=== PATIENT | female | born 1990 | race Caucasian/White ===

== ENCOUNTER 2017-02-26 16:10 | Emergency (ER) | payer BC, MEDICAID ==
[~2017-02-26] VITALS: Ht 157.5 cm; Wt 96.7 kg
[2017-02-26 16:10] VITALS: TEMP 98.4; Ht 157.5 cm; Wt 96.7 kg
[~2017-02-26 16:10] MED LIST: LEVO50TA72 PO; PREN1TAB53 PO
--- OUTSIDE RECORDS SUMMARY | 2017-02-26 16:14 | XMS REPORT | Referral Summary ---
Author Author [facility], Family Medicine Organization [facility], Family [facility] Address Unknown Phone Unavailable Care Team Providers Care Pmo Project Manager Name Role Phone Miguelina Cherry Primary Care Physician [phone] Encounter Date(s): 12/29/16 - 12/29/16 [facility], [address] [place] [id number] Discharge Diagnosis: Headache, common migraine Discharge Disposition: 01-Home or Self Care Attending Physician: Sandra Mason APRN Admitting Physician: Sandra Mason APRN Vital Signs Most recent to 1 oldest [Reference Range]: Temperature Tympanic 36.7 degC [36.6-38.1 degC] (12/29/16 2:16 PM) Peripheral Pulse 80 bpm Rate [60-100 bpm] (12/29/16 2:16 PM) Respiratory Rate 17 br/min [14-20 br/min] (12/29/16 2:16 PM) Blood Pressure 128/78 mmHg [90-140/60-90 mmHg] (12/29/16 2:16 PM) SpO2 98 % (12/29/16 2:16 PM) Problem List Condition Effective Dates Status Health Status Informant Anxiety(Confirmed) 10/23/11 Active Depression(Confirmed Active ) Thyroid Active disease(Confirmed) Ear 1991 Active infection(Confirmed) Psoriasis(Confirmed) 1991 Active Sexually transmitted 03/2011 Active disease(Confirmed) Allergies, Adverse Reactions, Alerts No Known Medication Allergies Medications FLUoxetine 40 mg oral capsule 40 mg 1 caps, Oral, Daily, # 30 caps, 3 Refill(s), Pharmacy: [id number], 1 caps Oral Daily Start Date: 12/02/16 Status: Ordered Imitrex 50 mg oral tablet 50 mg 1 tabs, Oral, Daily, as needed for migraine headache, may repeat dose after 2 hours up to a maximum of 200 mg in 24 hours, # 9 tabs, 0 Refill(s), Pharmacy: [id number], 1 tabs Oral Daily,PRN:as needed for migraine headache,Instr:march r... Start Date: 12/29/16 Status: Ordered Results Chemistry Most recent to 1 oldest [Reference Range]: U Beta hCG Ql Negative (12/29/16 2:09 PM) Immunizations Given and Recorded Vaccine Date Status Refusal Reason tetanus/diphth/pertuss (Tdap) adult/adol 05/22/14 Recorded Procedures Procedure Date Related Diagnosis Body Site Insertion, non-biodegradable drug delivery 12/29/16 implant section 2011 Hernia repair 1991 Social History Social History Type Response Smoking Status Never smoker Assessment and Plan Extracted from: Title: Procedure Note Author: Sandra Mason APRN Date: 12/29/16 Assessment/Plan Contraception Ordered: Insertion, Non-Biodegradable Drug Delivery Implant [id number] Office Visit Level 3 Est 54249 Headache, common migraine Ordered: Insertion, Non-Biodegradable Drug Delivery Implant [id number] Office Visit Level 3 Est 09570 Addendum by Hank, I reviewed this chart, the patient's medical history, and the [facility] Resident's/TANK MAKER WOOD's/PA/RN's/PharmD's documented findings, and concur with the assessment and on plan as above. December 29, 2016 16:11:59 NECK FITTER Extracted from: Title: Office Visit Note Author: Sandra Mason APRN Date: 12/29/16 Assessment/Plan Contraception Nexplanon was inserted seeprocedure note. Ordered: Insertion, Non-Biodegradable Drug Delivery Implant [id number] Office Visit Level 3 Est 03987 Headache, common migraine Prescription for Imitrexwith the usual instructions was written. She was cautioned about possible side effects and verbalized full understanding. Call or return if she has problems. Ordered: Insertion, Non-Biodegradable Drug Delivery Implant 61606 Office Visit Level 3 Est 27357
--- OUTSIDE RECORDS SUMMARY | 2017-02-26 16:14 | XMS REPORT | Referral Summary ---
Author Author [facility], [facility] Medicine Organization [facility] Address Unknown Phone Unavailable Care Team Providers Care Sand Filler Name Role Phone Miguelina Cherry Primary Care Physician [phone] Encounter VC Date(s): 12/02/16 - 12/02/16 [facility], [address] [place] [id number] Discharge Disposition: 01-Home or Self Care Attending Physician: Sandra Mason APRN Admitting Physician: Sandra Mason APRN Vital Signs Most recent to 1 oldest [Reference Range]: Temperature Tympanic 36.9 degC [36.6-38.1 degC] (12/02/16 1:26 PM) Peripheral Pulse 88 bpm Rate [60-100 bpm] (12/02/16 1:26 PM) Respiratory Rate 17 br/min [14-20 br/min] (12/02/16 1:26 PM) Blood Pressure 138/80 mmHg [90-140/60-90 mmHg] (12/02/16 1:26 PM) SpO2 98 % (12/02/16 1:26 PM) Problem List Condition Effective Dates Status Health Status Informant Anxiety(Confirmed) 10/23/11 Active Depression(Confirmed Active ) Thyroid Active disease(Confirmed) Ear 1991 Active infection(Confirmed) Psoriasis(Confirmed) 1991 Active Sexually transmitted 03/2011 Active disease(Confirmed) Allergies, Adverse Reactions, Alerts No Known Medication Allergies Medications FLUoxetine 40 mg oral capsule 40 mg 1 caps, Oral, Daily, # 30 caps, 3 Refill(s), Pharmacy: [id number], 1 caps Oral Daily Start Date: 12/02/16 Status: Ordered Results No data available for this section Immunizations Given and Recorded Vaccine Date Status Refusal Reason tetanus/diphth/pertuss (Tdap) adult/adol 05/22/14 Recorded Procedures Procedure Date Related Diagnosis Body Site section 2012 Hernia repair 1991 Social History Social History Type Response Smoking Status Never smoker Assessment and Plan No data available for this section
--- OUTSIDE RECORDS SUMMARY | 2017-02-26 16:14 | XMS REPORT | Referral Summary ---
Author Author [facility], [facility] Medicine Organization [facility] Address Unknown Phone Unavailable Care Team Providers Care Bookmaker'S Clerk Name Role Phone Miguelina Cherry Primary Care Physician [phone] Encounter VC Date(s): 10/23/15 - 10/23/15 [facility], [address] [place] [id number] Discharge Disposition: 01-Home or Self Care Attending Physician: Sam Cherry MD Admitting Physician: Sam Cherry MD Vital Signs Most recent to 1 oldest [Reference Range]: Peripheral Pulse 108 bpm Rate [60-100 bpm] *HI* (10/23/15 2:15 PM) Blood Pressure 134/80 mmHg [90-140/60-90 mmHg] (10/23/15 2:15 PM) SpO2 98 % (10/23/15 2:15 PM) Problem List Condition Effective Dates Status Health Status Informant Anxiety(Confirmed) 10/23/11 Active Depression(Confirmed Active ) Thyroid Active disease(Confirmed) Ear 1991 Active infection(Confirmed) Psoriasis(Confirmed) 1991 Active Allergies, Adverse Reactions, Alerts No Known Medication Allergies Medications FLUoxetine 40 mg oral capsule 40 mg 1 caps, Oral, Daily, # 90 caps, 2 Refill(s), Pharmacy: [id number], 1 caps Oral Daily Start Date: 10/23/15 Status: Ordered FLUoxetine 40 mg oral capsule See Instructions, 1 caps Oral Daily,Instr:Must have an appt. for additonal refills., # 30 caps, 2 Refill(s), eRx: [facility], 1 caps Oral Daily ,Instr:Must have an appt. for additonal refills. Start Date: 09/08/14 Status: Ordered levothyroxine 50 mcg (0.05 mg) oral capsule 50 mcg 1 caps, Oral, Daily, # 90 tabs, 2 Refill(s), Pharmacy: [id number], 1 caps Oral Daily Start Date: 10/23/15 Status: Ordered levothyroxine 50 mcg (0.05 mg) oral tablet 1 tabs, Oral, Daily, # 90 tabs, 3 Refill(s), Pharmacy: [id number], 1 tabs Oral Daily Start Date: 06/20/14 Status: Ordered PreNata oral tablet, chewable tabs, Chewed, Daily, 0 Refill(s) Start Date: 12/12/14 Status: Ordered ProAir HFA 90 mcg/inh inhalation aerosol 2 puffs, Inhalation, q4hr, as needed for wheezing, # 8.5 g, 0 Refill(s) Start Date: 12/12/14 Status: Ordered Results No data available for this section Immunizations No data available for this section Procedures Procedure Date Related Diagnosis Body Site section 2011 Hernia repair 1991 Social History Social History Type Response Smoking Status Never smoker Assessment and Plan No data available for this section
[2017-02-26] MEDS ORDERED: PROP80CA2 PO (17:03)
[2017-02-26] MEDS ORDERED: FLUO40CA49 PO (17:03)
[2017-02-26] MEDS ORDERED: ACET-62 PO (17:07)
[2017-02-26] MEDS ORDERED: SUMA50TA PO (17:07)
[2017-02-26] MEDS ORDERED: DiphenhydrAMINE 25 MG CAPSULE PO ONE (17:30)
[2017-02-26] MEDS ORDERED: PredniSONE 10 MG TABLET PO ONE (17:30)
[2017-02-26] MEDS ORDERED: PRED50TA PO (17:59)
[2017-02-26] MEDS ORDERED: FAMO-137 PO (17:59)
--- NOTE | 2017-02-26 18:00 | ERPDOC ---
Departure Disposition Decision Date: Feb 26, 2017 Disposition Decision Time: 17:57 Disposition: 01 DISCHARGED HOME, SELF-CARE Impression Impression Impression: Primary Impression: Accidental insect sting Severity: Mild Condition: Improved Seen By: Physician only Referrals: LIZ STRATTON APRN, PHD (Family) 2 Days Patient Instructions: Insect Bite or Sting (ED) Problems/Meds/Labs Reviewed?: Yes Medications reviewed and manag: Yes Follow up care ordered?: Yes Mental Status: Alert, Oriented Scripts Famotidine (Pepcid) 20 Mg Tablet 1 TAB PO BID for 10 Days, #20 TAB 0 Refills Prov: INESSA GODOY DO 02/26/17 Prednisone (Prednisone) 50 Mg Tablet 50 MG PO WB for 5 Days, #5 TAB 0 Refills Take 1 tablet, by mouth, once a day with breakfast. Prov: INESSA GODOY DO 02/26/17 HPI - Skin General General Chief Complaint: Allergic Reaction Stated Complaint: STUNG BY BEE Time Seen by Provider: 16:51 Source: patient Exam Limitations: no limitations HPI - Skin General Initial Comments 26-year-old female presents to the emergency department with a chief complaint of a bee sting to the left thigh. Patient noted onset of symptoms at approximately 2 PM today. Symptoms have been persistent in nature since onset. Patient notes mild dull discomfort at the site of sting only. No radiation. Patient removed the stinger herself. Patient's tetanus status is current. Patient denies any other complaints or associated symptoms. She was at home when the symptoms began. Patient describes her discomfort as mildly itchy. There is no intraoral involvement or breathing difficulties. No diffuse hives. Patient does not note any exacerbating or remitting factors. Occurred At: home Onset: Rapid Allergies: Coded Allergies: citalopram hydrobromide (Verified Allergy, Intermediate, trouble breathing , 02/26/17) banana (Verified Allergy, Mild, ITCHING, 02/26/17) throat starts to itch Uncoded Allergies: WASP STING (Allergy, Intermediate, DYSPNEA, 02/26/17) Past History Past Medical History Metabolic: hypothyroidism Respiratory: asthma Neurological: headaches Psychological: depression Surgical History General: hernia Family History Family PMH: FOUND: [place], cancer, diabetes, hypertension Vaccines Hx Influenza Vaccination: No Hx Pneumococcal Vaccination: No Hx Tetanus, Diptheria, Pertuss: No Social History Smoking Status: Never smoker Substance Use Type: does not use Alcohol Intake: none Review of Systems Constitutional Constitutional: DENIES: chills, fever Eyes General: DENIES: erythema, exudate Lids/Accessories: DENIES: erythema, swelling Vision: DENIES: acuity, blurring ENMT Ears: DENIES: drainage, erythema Hearing: DENIES: hearing loss Balance: DENIES: ataxia, falling to one side Sinuses: DENIES: congestion, pain Nose: DENIES: nosebleeds, pain Mouth/Throat: DENIES: painful swallowing, sore throat Teeth: DENIES: pain Jaw: DENIES: pain Cardiovascular Cardiac: DENIES: chest pain, dyspnea on exertion Rhythm/Rate: DENIES: irregular beat, palpitations Vascular: DENIES: pedal edema, unilateral swelling Pulmonary Respiratory: DENIES: cough, dyspnea, pleuritic chest pain, sputum GI Upper Abdomen: DENIES: nausea, pain, vomiting Lower Abdomen: DENIES: diarrhea, pain General: DENIES: dysuria, frequency Musculoskeletal General: DENIES: joint pain, tenderness Integumentary Skin: itching, DENIES: rash Neurological General: DENIES: headache, numbness, weakness Psychiatric Psychiatric: DENIES: emotional instability, suicidal ideation/attempt Endocrine Endocrine: DENIES: polydipsia, polyphagia Hematologic/Lymphatic Hematologic/Lymphatic: DENIES: frequent nosebleeds, lymphadenopathy Allergic/Immunological Allergic/Immunoligical: DENIES: allergic reactions, hives Physical Exam General General Nourishment: well nourished, well developed, appears stated age, no acute distress, adult General Body Habitus: well groomed Vitals and Pain First Documented Vital Signs Date Time Temp Pulse Resp B/P Pulse Ox O2 Delivery O2 Flow Rate FiO2 02/26/17 16:10 98.4 96 20 130/71 97 Room Air Weight: Kilograms: 96.700 Height (feet): 5 Height (inches): 2.00 Triage Pain Scale: RN VS reviewed by Provider: Yes Normal Exams: Head: Normocephalic w/o trauma Eyes: Pupils are PERRLA w/ EOMI, No scleral icterus, irritation, or foreign bodies noted ENMT: No facial trauma, nasal exudates, pharyngeal erythema, or exudates are noted Dental: No fractured, loose, or missing teeth noted Neck: Full range of motion, without adenopathy, JVD, bruits or thyromegaly Chest/Resp: Clear all kaminski, with good airflow, and symmetry bilaterally CV: Regular rate and rhythm, without murmur or gallop, Pulses 2+ all extremities, capillary refill, <2 seconds all ext., no pedal edema noted Abdomen: Bowel sounds positive, soft, non-tender, non-distended, no hepatosplenomegaly, masses or bruits noted Lymphatic: No lymphadenopathy, or lymphedema noted Musculoskeletal: No tenderness, or deformity noted, good range of motion, all extremities Integumentary: No rashes, hives, or bruising noted, hair and nails, without abnormality Neurologic: Patient is alert, and oriented, cranial nerves, motor/sensory/ cerebellar, exams w/o gross deficits, to observation Psychiatric: Patient exhibits, appropriate attention, emotion and affect Integumentary (brief) Comments Left inner thigh -small less than 0.5 cm area of erythema consistent with puncture wound. No stinger. No lymphangitis or abscess. No spreading of symptoms. Lesion blanches with pressure. Differential Diagnoses Considering: Contact Dermatitis, Hives/Urticaria, Scabies, Insect Sting Progress Results/Orders Orders Procedure Category Date Status Time Prednisone PHA 02/26/17 Complete (Prednisone) 17:30 Famotidine (Pepcid) PHA 02/27/17 Complete 09:00 Diphenhydramine PHA 02/26/17 Complete (Benadryl) 17:30 Medications Current ED Medications Prednisone (PredniSONE) 40 mg O ONCE PO Last administered on 02/26/17 17:34; Start 02/26/17 at 17:30; Stop 02/26/17 at 17:31; Status DC Famotidine (Pepcid) 20 mg DAILY PO Last administered on 02/26/17 17:34; Start 02/27/17 at 09:00; Stop 02/27/17 at 09:00; Status DC Diphenhydramine HCl (Benadryl) 25 mg O ONCE PO Last administered on 02/26/17 17:34; Start 02/26/17 at 17:30; Stop 02/26/17 at 17:31; Status DC Progress Progress Patient is monitored in the emergency department for a safe timeframe. She is given prednisone, Pepcid, and Benadryl. Patient symptoms have improved. She is discharged home in improved condition. Should follow up as instructed. Patient is to return to the emergency Department if her condition worsens or changes in any manner. Patient is in agreement with the current plan of management. Prescriptions for Pepcid and prednisone are provided. Patient is to use Benadryl [id number] 25 mg every 6 hours for the next 24 hours. Patient verbalizes agreement and understanding. Patient is discharged home in improved condition. INESSA GODOY DO Feb 26, 2017 18:00
[2017-02-26 18:21] VITALS: BP 136/78; PULSE 86; RESP 16; O2SAT 96
--- NOTE | 2017-02-26 18:21 | NUR ---
DEPART VERBAL AND WRITTEN DISCHARGE INSTRUCTIONS GIVEN AND UNDERSTOOD. CONDITION STABLE. RELEASED AMBULATORY WITH FAMILY.
[2017-02-27] MEDS ORDERED: FAMOTIDINE 20 MG TABLET PO SCH (09:00)
== END 2017-02-26 18:21 | disposition home or self-care (01) ==
LOC: ED 16:10
DX: T63.441A Toxic effect of venom of bees, accidental (unintentional), initial encounter (principal); Y92.009 Unspecified place in unspecified non-institutional (private) residence as the place of occurrence of the external cause
CPT/HCPCS: 99283; J7512

== ENCOUNTER 2017-03-02 19:16 | Emergency (ER) | payer BC ==
[~2017-03-02] VITALS: Ht 157.5 cm; Wt 96.0 kg
[~2017-03-02 19:16] MED LIST changes: +ACET-62 PO; +FAMO-137 PO; +FLUO40CA49 PO; -LEVO50TA72 PO; +PRED50TA PO; -PREN1TAB53 PO; +PROP80CA2 PO; +SUMA50TA PO
--- OUTSIDE RECORDS SUMMARY | 2017-03-02 19:20 | XMS REPORT | Continuity of Care Document ---
Author Author [facility] Organization [facility] Address Unknown Phone Unavailable Support Name Relationship Address Phone WALT INESSA Heidi STATON Caregiver [address] [place] [address] Unavailable LIZ STRATTON APRN PHD Caregiver [address] [place] [address] Unavailable ALBARO MOODY Next Of Kin [address] [place] [address] Insurance Providers Guarantor Rubio Mendez Address [address] [place] [address] Email DENIED 17 Payer [facility] Policy Number [id number] Subscriber's Name BradfordAlbaro Luis Relationship 01 Spouse Group Number [id number] Advance Directives Directive Response Recorded Date/Time Advanced Directives Type None 05/22/14 10:35am Ordered Resuscitation Status Full Code 04/13/14 6:03pm Chief Complaint and Reason for Visit Chief Complaint Allergic Reaction Reason for Visit Accidental insect sting Problems Active Problems Medical Problem Onset Date Status Vaginal delivery 05/24/2014 Acute Past Problems Medical Problem Onset Date Accidental insect sting Unknown Medications Current Home Medications Medication Dose Units Route Directions Days Qty Instructions Start Date Acetaminophen 500 Mg Tablet 1,000 Mg Oral Every 8 Hours as needed for Pain 02/26/17 Famotidine (Pepcid) 20 Mg Tablet 1 Tab Oral Twice A Day 10 Days 20 Tablet 02/26/17 Fluoxetine Hcl 40 Mg Capsule 40 Mg Oral Daily 02/26/17 Prednisone 50 Mg Tablet 50 Mg Oral Give With Breakfast 5 Days 5 Tablet Take 1 tablet, by mouth, once a day with breakfast. 02/26/17 Propranolol Hcl 80 Mg Cap.sa.24h 80 Mg Oral Daily 02/26/17 Sumatriptan Succinate (Imitrex) 50 Mg Tablet 50 Mg Oral As Needed 02/26/17 Past Home Medications Medication Directions Ordered Status Acetaminophen (Tylenol Extra Strength) 500 Mg Tablet, 500 Mg Oral As Needed 10/21/11 Discontinued Ascorbic Acid (Vitamin C) 500 Mg Capsule.sa, 500 Mg Oral Daily 10/21/11 Discontinued Escitalopram Oxalate (Lexapro) 10 Mg Tablet, 10 Mg Oral Daily 03/22/11 Discontinued Fluoxetine Hcl (Prozac) 40 Mg Capsule, 40 Mg Oral Daily 03/12/13 Discontinued Guaifenesin (Robitussin) 100 Mg/5 Ml Syrup, As Needed 12/02/10 Discontinued Ibuprofen 200 Mg Capsule, As Needed 12/02/10 Discontinued Vits W-Ca,Fe,Fa(<1MG) () 1 Tab Tablet, 1 Tab Oral Daily 01/03 Discontinued Social History Social History Problem Response Recorded Date/Time Onset Date Status Chewing Tobacco Status No 05/18/2014 9:50am Not Applicable Not Applicable Hx Substance Use Y marijuana 03-12-11 02/26/2017 5:38pm Not Applicable Not Applicable Hx Alcohol Use No 02/26/2017 5:38pm Not Applicable Not Applicable Has the pt used tobacco in the last 12 months No 05/22/2014 10:48am Not Applicable Not Applicable Query Response Start Date Stop Date Smoking Status Former smoker Hospital Discharge Instructions No hospital discharge instructions. Plan of Care Discharge Date 02/26/17 6:21pm Disposition 01 DISCHARGED HOME, SELF-CARE Condition at Discharge Improved Instructions/Education Provided Insect Bite or Sting (ED) Prescriptions See Medication Section Referrals LIZ STRATTON APRN, PHD Order Date: 2 Address: [address] [place] [address] [phone] Note: Care Plan and Goals Physician Care Plan Problem: Insect Sting Goal: Follow up with primary care provider Instructions: Take medications and follow care plan as discussed/written Functional Status No functional status results. Allergies, Adverse Reactions, Alerts Allergen Type Severity Reaction Status Last Updated citalopram hydrobromide Allergy Intermediate trouble breathing Active 05/09 Banana Allergy Mild ITCHING Active 02/26/17 WASP STING Allergy Intermediate DYSPNEA Active 02/26/17 Immunizations Query Response on File Recorded Date/Time Hx Influenza Vaccination No 05/22/14 10:48am Hx Pneumococcal Vaccination No 05/18/14 9:50am Hx Tetanus, Diptheria, Pertussis No 07/06/13 6:12pm Hx Influenza Vaccination No 05/22/14 10:48am Hx Tetanus, Diptheria, Pertussis No 07/06/13 6:12pm Vital Signs Acute Vital Signs Vital Response Date/Time Temperature (Fahrenheit) 98.4 deg F (96.8 - 99.1) 02/26/2017 4:10pm Temperature (Calculated Celsius) 36.86381 degrees C (36.0 - 37.3) 02/26/2017 4:10pm Pulse Rate (adult) 86 bpm (60 - 100) 02/26/2017 6:21pm Respiratory Rate 16 breaths/min (10 - 20) 02/26/2017 6:21pm O2 Sat by Pulse Oximetry 96 % (90 - 100) 02/26/2017 6:21pm Blood Pressure 136/78 mm Hg 02/26/2017 6:21pm Height (Feet) 5 feet 02/26/2017 4:10pm Height (Inches) 2.00 inches 02/26/2017 4:10pm Weight (Kilograms) 96.700 kg 02/26/2017 4:10pm Body Mass Index (BMI) 38.0 02/26/2017 4:10pm Results No known relevant diagnostic tests, laboratory data and/or discharge summary. Procedures No known history of procedures. Encounters Encounter Location Arrival/Admit Date Discharge/Depart Date Attending Provider Departed Emergency Room [facility] 02/26/17 4:10pm 02/26/17 6: 21pm INESSA GODOY DO Recent Diagnosis
[2017-03-02 19:31] VITALS: Ht 157.5 cm; Wt 96.0 kg
[2017-03-02] MEDS ORDERED: DIPH25CA84 PO (19:43)
[2017-03-02] MEDS ORDERED: BISM262O28 PO (19:43)
--- NOTE | 2017-03-02 19:58 | ERPDOC ---
Departure Disposition Decision Date: Mar 02, 2017 Disposition Decision Time: 21:39 Disposition: 01 DISCHARGED HOME, SELF-CARE Impression Impression Impression: Primary Impression: Gastroenteritis Severity: Moderate Condition: Stable Seen By: Mid-level only Referrals: LIZ STRATTON APRN, PHD (Family) Patient Instructions: Gastroenteritis (ED) Problems/Meds/Labs Reviewed?: Yes Medications reviewed and manag: Yes Additional Instructions: Take the Zofran as needed for nausea at home. Take small frequent sips of clear liquids to maintain hydration. Soft bland foods until you feel you are able to tolerate food again. Follow up with your primary care provider if you are not improving in the next 24-48 hours. Follow up care ordered?: Yes Mental Status: Alert Scripts Ondansetron (Zofran Odt) 4 Mg Tab.rapdis 4 MG PO Q6HR, #7 TAB 0 Refills Oral disintegrating tablet Prov: SHAKIRA LOMAX Brenda LUX 03/02/17 HPI - Abdominal Pain General Chief Complaint: Nausea,Vomiting,Diarrhea Stated Complaint: VOMITING/DIARRHEA Time Seen by Provider: 19:49 Source: patient History/Exam Limitations: no limitations HPI - Abdominal Pain Initial Comments She started having abdominal cramping and nausea/vomiting/diarrhea yesterday. Has had nausea all day today and tried to eat dinner. Then vomited her food after dinner. Has had several episodes of watery diarrhea today. Did vomit numerous times yesterday. Has had some chills and abdominal cramping yesterday. Occurred At: home Onset: Gradual Duration: 12-24 hrs Quality: cramping Location: generalized abdomen Radiation: no radiation Associated Symptoms: fever/chills (fever/chills), nausea/vomiting, DENIES: back pain, chest pain, diaphoresis, fatigue, headache, heartburn, rash, shortness of breath, swelling/mass in abdomen, syncope, weakness Hx of Similar Symptoms: No Allergies: Coded Allergies: citalopram hydrobromide (Verified Allergy, Intermediate, trouble breathing , 02/26/17) banana (Verified Allergy, Mild, ITCHING, 02/26/17) throat starts to itch Uncoded Allergies: WASP STING (Allergy, Intermediate, DYSPNEA, 02/26/17) Past History Past Medical History Metabolic: hypothyroidism Respiratory: asthma Neurological: headaches Psychological: depression Surgical History General: hernia Family History Family PMH: FOUND: [place], cancer, diabetes, hypertension Vaccines Hx Influenza Vaccination: No Hx Pneumococcal Vaccination: No Hx Tetanus, Diptheria, Pertuss: No Social History Substance Use Type: does not use Alcohol Intake: none Review of Systems Constitutional Constitutional: chills, fatigue, weakness, DENIES: dizziness, fever Cardiovascular Cardiac: DENIES: chest pain, orthopnea Rhythm/Rate: DENIES: irregular beat, palpitations Pulmonary Respiratory: DENIES: cough, dyspnea, sputum, tachypnea GI Upper Abdomen: nausea, pain, vomiting Lower Abdomen: diarrhea, pain, DENIES: constipation Integumentary Skin: DENIES: rash Neurological General: DENIES: headache, numbness, tingling, weakness Physical Exam General General Nourishment: well nourished, well developed, appears stated age, no acute distress, adult General Body Habitus: well groomed Vitals and Pain First Documented Vital Signs Date Time Temp Pulse Resp B/P Pulse Ox O2 Delivery O2 Flow Rate FiO2 03/02/17 19:31 98.3 103 16 137/77 100 Room Air Weight: Kilograms: Height (feet): 5 Height (inches): 2.00 Triage Pain Scale: RN VS reviewed by Provider: Yes Normal Exams: Neck: Full range of motion, without adenopathy, JVD, bruits or thyromegaly Chest/Resp: Clear all kaminski, with good airflow, and symmetry bilaterally CV: Regular rate and rhythm, without murmur or gallop, Pulses 2+ all extremities, capillary refill, <2 seconds all ext., no pedal edema noted Abdomen: Bowel sounds positive, soft, non-tender, non-distended, no hepatosplenomegaly, masses or bruits noted Lymphatic: No lymphadenopathy, or lymphedema noted Integumentary: No rashes, hives, or bruising noted Neurologic: Patient is alert, and oriented Psychiatric: Patient exhibits, appropriate attention, emotion and affect Differential Diagnoses Considering: Dehydration, Food Poisoning, Gastroenteritis, Hyponatremia, Hypokalemia, Hypoglycemia Progress Results/Orders Orders Procedure Category Date Status Time Cbc W/Auto LAB 03/02/17 Complete Diff-Reflex Manual Bmp - Basic Metabolic LAB 03/02/17 Complete Panel Iv Lock (Ed Only) EDM 03/02/17 Transmitted 19:54 Normal Saline (Normal PHA 03/02/17 Complete Saline Iv) 20:00 Ondansetron Inj PHA 03/02/17 Complete (Zofran) 20:00 Ondansetron Odt PHA 03/02/17 Complete (Zofran Odt) 21:15 Ondansetron Odt PHA 03/02/17 In Process (Prepack) (Zofran Odt 21:45 Lab Results Laboratory Tests Test 03/02/17 21:21 White Blood Count 13.2T/MM3 Red Blood Count 5.13M/MM3 Hemoglobin 15.2GM/DL Hematocrit 44.1% Mean Corpuscular Volume 86.0UM3 Mean Corpuscular Hemoglobin 29.6UUG Mean Corpuscular Hemoglobin Concent 34.5GM/DL RDW Standard Deviation 40.9FL Platelet Count 287T/MM3 Mean Platelet Volume 11.5UM3 Immature Granulocyte % (Auto) 0.3% Neutrophils (%) (Auto) 54.5% Lymphocytes (%) (Auto) 36.2% Monocytes (%) (Auto) 6.8% Eosinophils (%) (Auto) 1.8% Basophils (%) (Auto) 0.4% Absolute Immature Granulocyte (auto 0.04T/MM3 Absolute Neutrophils (auto) 7.2T/MM3 Absolute Lymphocytes (auto) 4.8T/MM3 Absolute Monocytes (auto) 0.9T/MM3 Absolute Eosinophils (auto) 0.2T/MM3 Absolute Basophils (auto) 0.1T/MM3 Turbidity < 20 Sodium Level 143MEQ/L Potassium Level 3.7MEQ/L Chloride Level 107MEQ/L Carbon Dioxide Level 22MEQ/L Anion Gap 14MEQ/L Blood Urea Nitrogen 14.0MG/DL Creatinine 0.7MG/DL Glomerular Filtration Rate Calc 103 BUN/Creatinine Ratio 20RATIO Glucose Level 130MG/DL Calculated Osmolality 278MOSM/KG Calcium Level 9.9MG/DL Icterus Index < 2 Chemistry Specimen Hemolysis 34 Medications Current ED Medications Sodium Chloride (Normal Saline IV) 1,000 ml @ 1,000 mls/hr Q1H ONCE IV ; Start 03/02/17 at 20:00; Stop 03/02/17 at 20:59; Status DC Ondansetron HCl (Zofran) 4 mg O ONCE IV ; Start 03/02/17 at 20:00; Stop at 21:05; Status DC Ondansetron HCl (Zofran Odt) 4 mg O ONCE PO Last administered on 03/02/17t 21: 37; Start 03/02/17 at 21:15; Stop 03/02/17 at 21:16; Status DC Ondansetron HCl (ZOFRAN ODT (PrePack)) 1 pack O ONCE SENT HOME ; Start at 21:45; Stop 03/02/17 at 21:46 Progress Progress CBC and BMP today are normal. Is feeling better after the Zofran SL. Will go ahead and let her go home today and have her push fluids at home. F/U with PCP if not improving. SHAKIRA LOMAX [employer] Mar 02, 2017 19:58
[2017-03-02] MEDS ORDERED: NORMAL SALINE 1,000 ML IV ONE (20:00)
[2017-03-02] MEDS ORDERED: ONDANSETRON 4mg/2ml INJECTION IV ONE (20:00)
--- NOTE | 2017-03-02 20:00 | NUR ---
IVL AFTER X5 ATTEMPT W/ NO SUCCESS AND ORDER CHANGED TO ZOFRAN ODT CHARTED.
[2017-03-02] MEDS ORDERED: ONDANSETRON ODT 4 MG TAB PO ONE (21:15)
--- NOTE | 2017-03-02 21:21 | NUR ---
LAB LAB IN ROOM UNABLE TO TO GET BLOOD DRAWN ONLY FINGER STICK.
[2017-03-02 21:31] LABS: BASOPHILS # (AUTO) 0.1 T/MM3 (0-0.2); BASOPHILS % (AUTO) 0.4 % (0-2); EOSINOPHILS # (AUTO) 0.2 T/MM3 (0-0.5); EOSINOPHILS % (AUTO) 1.8 % (0-4); HCT - HEMATOCRIT 44.1 % (36-46); HGB - HEMOGLOBIN 15.2 GM/DL (12-16); IMMATURE GRANULOCYTE # (AUTO) 0.04 T/MM3 (0.00-0.03); IMMATURE GRANULOCYTE % (AUTO) 0.3 % (0.0-0.5); LYMPHOCYTES # (AUTO) 4.8 T/MM3 (1-4.8); LYMPHOCYTES % (AUTO) 36.2 % (23-45); MEAN CORPUSCULAR HGB 29.6 UUG (26-34); MEAN CORPUSCULAR HGB CONC(MCHC 34.5 GM/DL (31-37); MEAN PLATELET VOLUME 11.5 UM3 (9.4-12.4); MONOCYTES # (AUTO) 0.9 T/MM3 (0-0.8); MONOCYTES % (AUTO) 6.8 % (0-9.0); NEUTROPHILS #(AUTO)-ABSOLUTE 7.2 T/MM3 (1.8-7.7); NEUTROPHILS % (AUTO) 54.5 % (33-66); RED BLOOD COUNT 5.13 M/MM3 (4.00-5.20); WBC - WHITE BLOOD COUNT 13.2 T/MM3 (4.5-11.0)
[2017-03-02 21:36] LABS: ANION GAP 14 MEQ/L (5-15); BUN/CREATININE RATIO 20 RATIO (6-26); CALCIUM 9.9 MG/DL (8.4-10.2); CHLORIDE 107 MEQ/L (98-107); CO2 - CARBON DIOXIDE 22 MEQ/L (22-30); CREATININE 0.7 MG/DL (0.7-1.2); GLOMERULAR FILTRATION RATE 103; GLUCOSE 130 MG/DL (65-110); POTASSIUM 3.7 MEQ/L (3.6-5); SODIUM 143 MEQ/L (134-144)
--- NOTE | 2017-03-02 21:37 | NUR ---
PO MED ODT ZOFRAN GIVEN CHARTED W/ PT TOLERANCE.
[2017-03-02] MEDS ORDERED: ONDA4TAB7 PO (21:41)
[2017-03-02] MEDS ORDERED: ONDANSETRON ODT 4mg #3 (PrePack) SENT HOME ONE (21:45)
--- NOTE | 2017-03-02 21:48 | NUR ---
TAKE HOME PREPACK ZOFRAN ODT PREPACK GIVEN CHARTED W/ PT TOLERANCE.
[2017-03-02 21:51] VITALS: BP 130/70; PULSE 98; RESP 20; TEMP 98.3; O2SAT 100
--- NOTE | 2017-03-02 21:51 | NUR ---
DISCHARGE PT GIVEN INSTRUCTIONS FOR GASTROENTERITIS W/ PT VERBALIZED UNDERSTANDING AND SIGNED FORM. PT LEFT ER ALERT AMBULATORY W/O ASSIST, VS CHARTED W/ NAUSEA CONDITION RELIEVED AND NO ACUTE DISTRESS.
== END 2017-03-02 21:51 | disposition home or self-care (01) ==
LOC: ED 19:16
DX: K52.9 Noninfective gastroenteritis and colitis, unspecified (principal)
CPT/HCPCS: 36416; 80048; 85025